=== PATIENT | male | born 1980 | race Caucasian/White ===

== ENCOUNTER 2018-02-07 14:15 | Inpatient (IN) | payer OTHER ==
[~2018-02-07] VITALS: Ht 172.7 cm; Wt 71.3 kg
[2018-02-07 16:34] LABS: BASOPHILS % (AUTO) 2.8 % (0.0-5.0); EOSINOPHILS % (AUTO) 2.8 % (0.0-8.0); HEMATOCRIT 44.2 % (42-54); LYMPHOCYTES % (AUTO) 19.8 % (21.0-51.0); MEAN CORPUSCULAR HEMOGLOBIN 31.9 pg (27.0-33.0); MEAN CORPUSCULAR HGB CONC 33.8 g/dL (32.0-36.0); MEAN CORPUSCULAR VOLUME 94.4 fL (79-99); NEUTROPHILS % (AUTO) 66.6 % (40.0-77.0); PLATELET COUNT (AUTO) 249 K/uL (130-400); RED BLOOD CELL COUNT(AUTO) 4.68 MIL/uL (4.50-6.20); RED CELL DISTRIBUTION WIDTH 13.7 % (11.0-15.5)
[2018-02-07 16:34] LABS: APPEARANCE,URINE Clear (CLEAR); BILIRUBIN,URINE Negative (NEGATIVE); COLOR,URINE Yellow (YELLOW); GLUCOSE, URINE (UA) Negative (NEGATIVE); KETONES,URINE Trace mg/dL (NEGATIVE); LEUKOCYTE ESTERASE ,URINE Negative (NEGATIVE); NITRATE,URINE Negative (NEGATIVE); OCCULT BLOOD,URINE Negative (NEGATIVE); PH,URINE 5.5 (5.0-8.0); PROTEIN,URINE Negative (NEGATIVE)
[2018-02-07 16:41] LABS: BACTERIA,URINE None Seen /HPF (None Seen); RBC,URINE None Seen /HPF (0-1); WBC,URINE None Seen /HPF (0-1)
[2018-02-07 16:42] LABS: MUCUS,URINE Rare LPF (None Seen); SQUAMOUS EPITHELIAL CELL,UR Rare /HPF (0-2)
[2018-02-07 16:44] VITALS: BP 109/69
[2018-02-07 16:47] LABS: POTASSIUM 4.1 mmol/L (3.5-5.1)
[2018-02-07 16:51] LABS: INR 0.95 (0.85-1.15); PARTIAL THROMBOPLASTIN TIME 28.6 SEC (26.3-35.5)
[2018-02-07] MEDS ORDERED: CALC-1085 PO (16:57)
[2018-02-07] MEDS ORDERED: ALEN70TA47 PO (16:57)
[2018-02-08] VITALS (22 sets, daily range): BP systolic 100–130; BP diastolic 58–97
[2018-02-08] MEDS ORDERED: LACTATED RINGERS 1000ML 1,000 ML IV ONE (08:34)
[2018-02-08] MEDS: CEFAZOLIN SODIUM 1 GM VIAL IVP PRN ×2 (09:01→10:35)
[2018-02-08] MEDS ORDERED: KETOROLAC TROMETHAMINE 15MG/ML ONE (09:30)
[2018-02-08] MEDS ORDERED: METOCLOPRAMIDE 10 MG/2 ML VIAL ONE (09:30)
[2018-02-08] MEDS ORDERED: ACETAMINOPHEN EXTRA STRENGTH 500 MG TABLET ONE (09:30)
[2018-02-08] MEDS ORDERED: CELECOXIB 200 MG CAP ONE (09:31)
[2018-02-08] MEDS ORDERED: OXYCODONE HCL 10 MG TAB.SR.12H PO ONE (09:31)
[2018-02-08] MEDS ORDERED: TRANEXAMIC ACID 1000MG/10ML IV ONE (09:41)
[2018-02-08] MEDS ORDERED: ROPIVACAINE 0.5% 5MG/ML 30ML IJ ONE (10:05)
[2018-02-08] MEDS ORDERED: SUCCINYLCHOLINE 200MG/10ML SYR ONE (10:06)
[2018-02-08] MEDS ORDERED: LIDOCAINE PF 2% 5ML ABBOJECT ONE (10:06)
[2018-02-08] MEDS ORDERED: NEOSTIGMINE 5MG/5ML SYR IV ONE (10:07)
[2018-02-08] MEDS ORDERED: DEXAMETHASONE SOD PHOSPHATE 10MG/ML 1ML VIAL ONE (10:07)
[2018-02-08] MEDS ORDERED: GLYCOPYRROLATE 1 MG/5 ML SYRINGE ONE (10:07)
[2018-02-08] MEDS ORDERED: ONDANSETRON HCL 4 MG/2 ML VIAL ONE (10:07)
[2018-02-08] MEDS ORDERED: PROPOFOL 10 MG/ML 20ML VIAL IV ONE ×2 (10:07→13:56)
[2018-02-08] MEDS ORDERED: FENTANYL CITRATE PF 50 MCG/1 ML 2ML VIAL ONE ×3 (10:08→13:29)
[2018-02-08] MEDS ORDERED: MIDAZOLAM HCL 1 MG/ML 2ML VIAL ONE (10:08)
[2018-02-08] MEDS ORDERED: ROCURONIUM 10MG/1ML SYR 10 MG/ML ML ONE (10:08)
[2018-02-08] MEDS ORDERED: POTASSIUM CHLORIDE 10% ELIXIR 20 MEQ/15 ML UDCUP PO PRN (13:45)
[2018-02-08] MEDS ORDERED: CALCIUM CARBONATE 500 MG TABLET PO PRN (13:45)
[2018-02-08] MEDS ORDERED: OXYCODONE HCL 5 MG TAB PO PRN (13:45)
[2018-02-08] MEDS ORDERED: ONDANSETRON HCL 4 MG/2 ML VIAL IVP PRN (13:45)
[2018-02-08] MEDS: ACETAMINOPHEN EXTRA STRENGTH 500 MG TABLET PO SCH ×2 (13:45→19:39)
[2018-02-08] MEDS ORDERED: FERROUS FUMARATE 324 MG TABLET PO PRN (13:45)
[2018-02-08] MEDS ORDERED: TRAMADOL HCL 50 MG TABLET PO PRN (13:45)
[2018-02-08] MEDS ORDERED: DiphenhydrAMINE HCL 50 MG/ML VIAL IVP PRN (13:45)
[2018-02-08] MEDS ORDERED: POTASSIUM CHLORIDE 20 MEQ ERTAB PO PRN (13:45)
[2018-02-08] MEDS ORDERED: POTASSIUM CHLORIDE 20MEQ/100ML 100 ML IV PRN (13:45)
[2018-02-08] MEDS ORDERED: LIDOCAINE HCL-MPF 1% 2ML VIAL IVP PRN (13:45)
[2018-02-08] MEDS ORDERED: MEPERIDINE-PF 25 MG/ML SYG ONE (14:15)
[2018-02-08] MEDS: SODIUM CHLORIDE 0.9% 1000ML 1,000 ML IV SCH ×2 (15:18→22:45)
[2018-02-08] MEDS: KETOROLAC TROMETHAMINE 15MG/ML IV PRN (15:18)
[2018-02-08] MEDS: OXYCODONE HCL 5 MG TAB PO PRN ×2 (16:53→22:49)
[2018-02-08] MEDS: CALCIUM 600 + VITAMIN D 400 TABLET PO SCH (16:54)
[2018-02-08] MEDS: CEFAZOLIN SODIUM 1 GM VIAL IVP SCH (19:32)
[2018-02-08] MEDS: ASPIRIN 325 MG TABLET PO SCH (19:36)
[2018-02-08] MEDS: CELECOXIB 200 MG CAP PO SCH (19:36)
[2018-02-08] MEDS: FAMOTIDINE 20MG TAB 20 MG TAB PO SCH (19:36)
[2018-02-08] MEDS: PREGABALIN 25 MG CAP PO SCH (19:36)
[2018-02-08] MEDS ORDERED: VITAMIN D3 PO SCH (21:00)
[2018-02-08] MEDS ORDERED: CALCIUM CARBONATE PO SCH (21:00)
[2018-02-08] MEDS ORDERED: [UNRECOGNIZED DRUG - OTHER] PO SCH (21:00)
[2018-02-09] MEDS: KETOROLAC TROMETHAMINE 15MG/ML IV PRN ×2 (01:41→16:01)
[2018-02-09] MEDS: CEFAZOLIN SODIUM 1 GM VIAL IVP SCH (01:42)
[2018-02-09] MEDS: OXYCODONE HCL 5 MG TAB PO PRN ×6 (03:46→23:52)
[2018-02-09] MEDS: ACETAMINOPHEN EXTRA STRENGTH 500 MG TABLET PO SCH ×3 (03:46→19:54)
[2018-02-09] MEDS: CALCIUM 600 + VITAMIN D 400 TABLET PO SCH ×2 (03:48→16:19)
[2018-02-09 04:40] VITALS: BP 106/60
[2018-02-09 04:51] LABS: HEMATOCRIT 32.9 % (42-54); MEAN CORPUSCULAR HEMOGLOBIN 32.8 pg (27.0-33.0); MEAN CORPUSCULAR HGB CONC 34.4 g/dL (32.0-36.0); MEAN CORPUSCULAR VOLUME 95.4 fL (79-99); PLATELET COUNT (AUTO) 230 K/uL (130-400); RED BLOOD CELL COUNT(AUTO) 3.45 MIL/uL (4.50-6.20); RED CELL DISTRIBUTION WIDTH 13.3 % (11.0-15.5); WHITE BLOOD COUNT (AUTO) 19.3 K/uL (4.8-10.8)
[2018-02-09 04:57] LABS: CREATININE 0.8 mg/dL (0.5-1.5); POTASSIUM 4.3 mmol/L (3.5-5.1)
[2018-02-09 07:59] VITALS: BP 103/65
[2018-02-09] MEDS: POLYETHYLENE GLYCOL 3350 17 GM POWD.PACK PO SCH (08:23)
[2018-02-09] MEDS: PREGABALIN 25 MG CAP PO SCH ×2 (08:24→19:53)
[2018-02-09] MEDS: CELECOXIB 200 MG CAP PO SCH ×2 (08:24→19:54)
[2018-02-09] MEDS: TAMSULOSIN HCL 0.4 MG CAP.ER.24H PO SCH (08:24)
[2018-02-09] MEDS: ASPIRIN 325 MG TABLET PO SCH ×2 (08:24→19:54)
[2018-02-09] MEDS: FAMOTIDINE 20MG TAB 20 MG TAB PO SCH ×2 (08:24→19:54)
[2018-02-09] MEDS: SODIUM CHLORIDE 0.9% 1000ML 1,000 ML IV SCH (09:43)
[2018-02-09 11:05] VITALS: BP 101/72
[2018-02-09 16:03] VITALS: BP 93/57
[2018-02-09 20:41] VITALS: BP 102/76
[2018-02-10 00:22] VITALS: BP 103/56
[2018-02-10] MEDS: OXYCODONE HCL 5 MG TAB PO PRN ×5 (04:13→20:31)
[2018-02-10] MEDS: ACETAMINOPHEN EXTRA STRENGTH 500 MG TABLET PO SCH ×2 (04:14→12:12)
[2018-02-10 04:25] VITALS: BP 98/55
[2018-02-10 07:33] VITALS: BP 106/58
[2018-02-10] MEDS: ASPIRIN 325 MG TABLET PO SCH ×2 (08:11→20:30)
[2018-02-10] MEDS: CALCIUM 600 + VITAMIN D 400 TABLET PO SCH ×2 (08:11→16:38)
[2018-02-10] MEDS: CELECOXIB 200 MG CAP PO SCH ×2 (08:12→20:30)
[2018-02-10] MEDS: TAMSULOSIN HCL 0.4 MG CAP.ER.24H PO SCH (08:12)
[2018-02-10] MEDS: PREGABALIN 25 MG CAP PO SCH ×2 (08:12→20:30)
[2018-02-10] MEDS: FAMOTIDINE 20MG TAB 20 MG TAB PO SCH ×2 (08:12→20:30)
[2018-02-10] MEDS: POLYETHYLENE GLYCOL 3350 17 GM POWD.PACK PO SCH (08:12)
[2018-02-10 10:57] VITALS: BP 105/59
[2018-02-10 16:34] VITALS: BP 106/62
[2018-02-10] MEDS ORDERED: BISACODYL 5 MG TABLET.DR PO PRN (16:45)
[2018-02-10] MEDS ORDERED: POLYETHYLENE GLYCOL 3350 17 GM POWD.PACK ONE (17:34)
[2018-02-10] MEDS ORDERED: POLYETHYLENE GLYCOL 3350 17 GM POWD.PACK PO SCH (21:00)
[2018-02-11] MEDS ORDERED: BISACODYL 10 MG SUPP.RECT RC PRN (13:45)
[2018-02-15] MEDS ORDERED: ALENDRONATE SODIUM 35 MG TAB PO SCH (06:30)
== END 2018-02-10 21:25 | DRG 470 ==
LOC: DAHIP 02-08 08:23 → 4AH 02-08 13:56
PROVIDERS: ADMIT Orthopaedic Surgery; ATTEND Orthopaedic Surgery
PROC: 0SR903Z Replacement of Right Hip Joint with Ceramic Synthetic Substitute, Open Approach (ICD-10-PCS; principal; 2018-02-08 10:05)
DX: M87.051 Idiopathic aseptic necrosis of right femur (principal); J44.9 Chronic obstructive pulmonary disease, unspecified; F41.9 Anxiety disorder, unspecified; K58.9 Irritable bowel syndrome, unspecified; F32.9 Major depressive disorder, single episode, unspecified; Z99.81 Dependence on supplemental oxygen
CPT/HCPCS: 36415; 73503; 80048; 81001; 85025; 85027; 85610; 85730; 88304; 88311; 96374; 96375; 97039; J0330; J0690; J1100; J1885; J2001; J2175; J2250; J2405; J2704; J2710; J2765; J2795; J3010; J3490; J7030; J7120

== ENCOUNTER 2019-06-04 11:01 | Emergency (ER) | payer OTHER ==
[~2019-06-04 11:01] MED LIST: ALEN70TA10 PO; CALC-1085 PO
[2019-06-04] MEDS ORDERED: IBUPROFEN 600 MG TABLET ONE (12:59)
== END 2019-06-04 13:38 | disposition home or self-care (01) ==
LOC: EDH 11:01
DX: S43.402A Unspecified sprain of left shoulder joint, initial encounter (principal); M81.0 Age-related osteoporosis without current pathological fracture; W18.39XA Other fall on same level, initial encounter; Y93.01 Activity, walking, marching and hiking; Y92.098 Other place in other non-institutional residence as the place of occurrence of the external cause; Y99.8 Other external cause status
CPT/HCPCS: 73060

== ENCOUNTER 2023-09-08 14:44 | Emergency (ER) | payer OTHER ==
[~2023-09-08] VITALS: Ht 175.3 cm; Wt 65.8 kg
[~2023-09-08 14:44] MED LIST changes: -ALEN70TA10 PO; +ALEN70TA80 PO; +ASPI-1026 PO; +CETI10TA57 PO; +CYCL-309 PO; +DOCU-116 PO; +FLUT15.845 NS; +HYDR-4060 PO; +LEVA15HF3 IH; +MELA10TA2 PO; +PREG25 PO; +TEMA15CA PO
[2023-09-08 15:09] LABS: BASOPHILS # (AUTO) 0.09 K/uL (0.00-0.20); BASOPHILS % (AUTO) 1.5 % (0.0-5.0); EOSINOPHILS # (AUTO) 0.27 K/uL (0.00-0.70); EOSINOPHILS % (AUTO) 4.4 % (0.0-8.0); IMMATURE GRANULOCYTE ABSOLUTE 0.02 K/uL (0-1); LYMPHOCYTES # (AUTO) 1.3 K/uL (1.0-4.8); LYMPHOCYTES % (AUTO) 20.3 % (21.0-51.0); MEAN CORPUSCULAR HGB CONC 34.4 g/dL (32.0-36.0); MONOCYTES # (AUTO) 0.7 K/uL (0.1-1.0); MONOCYTES % (AUTO) 11.7 % (3.0-13.0); NEUTROPHILS # (AUTO) 3.8 K/uL (1.8-7.7); NEUTROPHILS % (AUTO) 61.8 % (40.0-77.0); PLATELET COUNT (AUTO) 237 K/uL (130-400); RED BLOOD CELL COUNT(AUTO) 4.48 MIL/uL (4.50-6.20); RED CELL DISTRIBUTION WIDTH 12.9 % (11.0-15.5); WHITE BLOOD COUNT (AUTO) 6.2 K/uL (4.8-10.8)
[2023-09-08 15:26] LABS: CREATININE 0.8 mg/dL (0.5-1.3); MAGNESIUM 1.8 mg/dL (1.80-2.40); POTASSIUM 3.8 mmol/L (3.5-5.1)
[2023-09-08 15:43] LABS: SARS-CoV-2, RNA, NAAT NEGATIVE SARS CoV-2 (NEGATIVE)
[2023-09-08 15:48] LABS: INFLUENZA TYPE A Negative For Type A (NEGATIVE); INFLUENZA TYPE B Negative For Type B (NEGATIVE)
[2023-09-08] MEDS ORDERED: FLUT16H NASAL (17:14)
[2023-09-08] MEDS ORDERED: LORA10TA7 PO (17:14)
[2023-09-08 17:26] VITALS: BP 126/78; PULSE 78; RESP 18; O2SAT 98
== END 2023-09-08 17:28 | disposition home or self-care (01) ==
LOC: EDH 14:44
DX: J06.9 Acute upper respiratory infection, unspecified (principal); Z20.822 Contact with and (suspected) exposure to COVID-19; Z79.899 Other long term (current) drug therapy; Z98.890 Other specified postprocedural states
CPT/HCPCS: 36415; 71045; 80048; 83735; 84484; 85025; 87635; 87804; 93005